=== PATIENT | male | born 1985 | race Caucasian/White ===

== ENCOUNTER 2017-03-30 15:45 | Emergency (ER) | payer SELFPAY ==
[~2017-03-30] VITALS: Ht 180.3 cm; Wt 81.0 kg
[2017-03-30] MEDS ORDERED: GABAPENTIN600 MG PO (16:12)
[2017-03-30] MEDS ORDERED: MOTRIN800 MG PO ×2 (16:21→16:58)
[2017-03-30] MEDS ORDERED: SOMA350 MG PO (16:58)
[2017-03-30 17:11] VITALS: BP 114/74
== END 2017-03-30 17:15 | disposition home or self-care (01) | DRG 605 ==
LOC: ED 15:45
DX: S30.0XXA Contusion of lower back and pelvis, initial encounter (principal); S13.9XXA Sprain of joints and ligaments of unspecified parts of neck, initial encounter; W01.198A Fall on same level from slipping, tripping and stumbling with subsequent striking against other object, initial encounter; Y93.E2 Activity, laundry; Y92.89 Other specified places as the place of occurrence of the external cause